=== PATIENT | female | born 1990 | race Caucasian/White ===

== ENCOUNTER 2018-07-22 21:28 | Emergency (ER) | payer SELFPAY ==
[2018-07-22] MEDS ORDERED: Ketorolac Tromethamine 60 MG/2 ML VIAL ONE (22:12)
[2018-07-22] MEDS ORDERED: Cyclobenzaprine 10 MG TAB ONE (22:12)
== END 2018-07-22 22:50 | disposition home or self-care (01) ==
LOC: SCSER 21:28
DX: M26.623 Arthralgia of bilateral temporomandibular joint (principal); F17.210 Nicotine dependence, cigarettes, uncomplicated; D64.9 Anemia, unspecified
CPT/HCPCS: 96372; J1885